=== PATIENT | female | born 1950 | race Caucasian/White ===

== ENCOUNTER → 2023-11-02 | Day surgery (SDC) | payer OTHER, BC ==
[2023-10-27 12:18] VITALS: BMI 21.6
[~2023-11-02] MED LIST: BSS (NA/CA/MG/K) BALANCED SALT SOLUTION OPHTH SOLN 15 ML BOTTLE ONE; CARBACHOL 0.01% INTRA-OCULAR 1.5 ML VIAL ONE; LIDOCAINE 1% P/F 10 MG/ML VIAL ONE; MIDAZOLAM HCL 2 MG/2 ML SINGLE DOSE VIAL ONE; NEO/POLYMYX B SULF/DEXAMETH OPHTHALMIC 5ML BOTTLE ONE; TETRACAINE 0.5% OPHTH SOLN 2 ML BOTTLE ONE
[2023-11-02] MEDS: CIPROFLOXACIN 0.3% EYE DROPS 5 ML BOTTLE ONE (07:50)
[2023-11-02] MEDS: CYCLOPENTOLATE 2% OPHTH SOLN 2 ML BOTTLE ONE (07:50)
[2023-11-02] MEDS: TROPICAMIDE 1% OPHTH SOLN 15 ML BOTTLE ONE (07:50)
[2023-11-02] MEDS: PHENYLEPHRINE 2.5% OPTHALMIC DROP 2ML BOTTLE ONE (07:50)
[2023-11-02 07:56] VITALS: RESP 16
[2023-11-02 10:04] VITALS: TEMP 97.1
[2023-11-02 10:07] VITALS: BP 120/62; PULSE 61
== END | disposition home or self-care (01) ==
LOC: FASU 07:07
PROVIDERS: ATTEND Ophthalmology
PROC: 08RK3JZ Replacement of Left Lens with Synthetic Substitute, Percutaneous Approach (ICD-10-PCS; principal; 2023-11-02 08:57)
DX: H26.8 Other specified cataract (principal)
CPT/HCPCS: 66984; V2632

== ENCOUNTER 2023-11-16 09:54 | Day surgery (SDC) | payer OTHER, BC ==
[2023-11-10 12:25] VITALS: BMI 21.6
[2023-11-16] MEDS: CIPROFLOXACIN 0.3% EYE DROPS 5 ML BOTTLE ONE (10:20)
[2023-11-16] MEDS: PHENYLEPHRINE 2.5% OPTHALMIC DROP 2ML BOTTLE ONE (10:20)
[2023-11-16] MEDS: CYCLOPENTOLATE 2% OPHTH SOLN 2 ML BOTTLE ONE (10:20)
[2023-11-16] MEDS: TROPICAMIDE 1% OPHTH SOLN 15 ML BOTTLE ONE (10:20)
[2023-11-16] MEDS ORDERED: BSS (NA/CA/MG/K) BALANCED SALT SOLUTION OPHTH SOLN 15 ML BOTTLE ONE (11:18)
[2023-11-16] MEDS ORDERED: TETRACAINE 0.5% OPHTH SOLN 2 ML BOTTLE ONE (11:18)
[2023-11-16] MEDS ORDERED: LIDOCAINE 1% P/F 10 MG/ML VIAL ONE (11:18)
[2023-11-16] MEDS ORDERED: NEO/POLYMYX B SULF/DEXAMETH OPHTHALMIC 5ML BOTTLE ONE (11:18)
[2023-11-16] MEDS ORDERED: CARBACHOL 0.01% INTRA-OCULAR 1.5 ML VIAL ONE (11:18)
[2023-11-16] MEDS ORDERED: MIDAZOLAM HCL 2 MG/2 ML SINGLE DOSE VIAL ONE (11:34)
[2023-11-16 12:02] VITALS: RESP 18; TEMP 97.7
[2023-11-16 12:30] VITALS: BP 121/65; PULSE 58
== END 2023-11-16 12:33 | disposition home or self-care (01) ==
LOC: FASU 09:54
PROVIDERS: ATTEND Ophthalmology
PROC: 08RJ3JZ Replacement of Right Lens with Synthetic Substitute, Percutaneous Approach (ICD-10-PCS; principal; 2023-11-16 11:43)
DX: H26.8 Other specified cataract (principal)
CPT/HCPCS: 66984; V2632